=== PATIENT | male | born 1975 | race Caucasian/White ===

== ENCOUNTER 2017-08-12 09:17 | Outpatient (CLI) | payer BC | END 2017-08-12 09:18 | disposition home or self-care (01) | LOC: BICULT 09:17 | PROVIDERS: ATTEND Internal Medicine Gastroenterology | DX: K21.9 Gastro-esophageal reflux disease without esophagitis (principal); R14.0 Abdominal distension (gaseous); R07.9 Chest pain, unspecified; K76.0 Fatty (change of) liver, not elsewhere classified | CPT/HCPCS: 76705 ==

== ENCOUNTER 2019-02-06 07:25 | Outpatient (CLI) | payer BC ==
--- NOTE | 2019-02-06 15:25 | NM ---
NUCLEAR MEDICINE GASTRIC EMPTYING EXAM: Date: 02/06/19 HISTORY: 43-year-old male with esophageal reflux. TECHNIQUE: A nuclear medicine gastric emptying exam was performed after administration of 2.1 mCi technetium-99m sulfur colloid mixed with eggs. FINDINGS: 53% emptying is seen at 32 minutes. 49% emptying is seen at 61 minutes. 63% emptying is seen at 121 minutes. 89% emptying is seen at 188 minutes. 92% emptying is seen at 242 minutes. T-1/2 of gastric emptying is approximately 30 minutes. IMPRESSION: Normal nuclear medicine gastric emptying exam. POS: [facility]
== END 2019-02-06 07:26 | disposition home or self-care (01) ==
LOC: NM 07:25
PROVIDERS: ATTEND Internal Medicine Gastroenterology
DX: K76.0 Fatty (change of) liver, not elsewhere classified (principal); K21.9 Gastro-esophageal reflux disease without esophagitis
CPT/HCPCS: 78264; A9541

== ENCOUNTER 2019-02-26 09:39 | Outpatient (CLI) | payer BC ==
--- NOTE | 2019-02-26 10:12 | RAD ---
EXAM: 3 views of the right foot HISTORY: Foot pain in the lateral foot for one month COMPARISON: None FINDINGS: 3 views of the right foot shows no evidence of acute fracture or dislocation. No soft tissu e swelling is seen. No degenerative changes are present. IMPRESSION: No evidence of acute osseous abnormality.
== END 2019-02-26 09:40 | disposition home or self-care (01) ==
LOC: RAD 09:39 → SCSRAD 09:40
PROVIDERS: ATTEND Family Medicine
DX: M79.671 Pain in right foot (principal)

== ENCOUNTER 2019-04-27 07:47 | Outpatient (CLI) | payer BC ==
--- NOTE | 2019-04-27 13:10 | NM ---
EXAM: NM Hida Scan W Drug PROVIDED CLINICAL HISTORY: Abdominal distention (gaseous) COMPARISON: None FINDINGS: Sequential anterior images of the abdomen are obtained. There is prompt uptake and excretion of radio tracer by the liver. Gallbladder activity is visualized by 4 minutes with increasing activity in the gallbladder imaging up to 60 minutes. Bowel activity is visualized by 6 minutes. After 60 minutes of imaging, 8 ounces of ensure was administered orally. A gallbladder ejection fraction of 49% was obtained. A normal gallbladder ejection fraction is greater than 33%. IMPRESSION: 1. No evidence of a cystic or common duct obstruction. 2. Normal gallbladder ejection fraction.
== END 2019-04-27 07:48 | disposition home or self-care (01) ==
LOC: NM 07:47
PROVIDERS: ATTEND Internal Medicine Gastroenterology
DX: R14.0 Abdominal distension (gaseous) (principal)
CPT/HCPCS: 78227; A9537

== ENCOUNTER 2019-10-19 12:36 | Emergency (ER) | payer BC ==
[2019-10-19 13:14] LABS: #Basophils 0.1 thou/uL (0.0-0.2); #Eosinphils 0.4 thou/uL (0.0-0.7); #Monocytes 1.2 thou/uL (0.11-0.59); #Neutrophils 10.8 thou/uL (1.40-6.50); %Basophils 0.9 % (0.0-1.0); %Eosinophils 2.3 % (0.0-10.0); %Monocytes 7.9 % (0.0-10.0); %Neutrophils 69.9 % (42.0-75.0); Mean Corpuscular HGB CONC 33.1 g/dL (32.0-36.0); Mean Corpuscular Hemoglobin 29.3 pg (27.0-31.0); Mean Corpuscular Volume 88.5 fL (78.0-98.0); Mean Platelet Volume 7.9 fL (7.4-10.4); Platelet Count 446 thou/uL (130-400); RBC Distribution Width 11.7 % (11.5-14.5); White Blood Cell (WBC) Count 15.5 thou/uL (4.8-10.8)
[2019-10-19] MEDS ORDERED: Ketorolac Tromethamine 30 MG/ML VIAL ONE ×2 (13:43→13:53)
[2019-10-19] MEDS ORDERED: Ondansetron PF 4 MG/2 ML Vial ONE ×2 (13:43→13:53)
[2019-10-19 13:44] LABS: ALT (SGPT) 22 U/L (8-55); AST (SGOT) 17 U/L (5-34); Albumin 4.5 g/dL (3.5-5.0); Alkaline Phosphatase 154 U/L (40-110); Anion Gap 11 mmol/L (10-20); BUN (Urea Nitrogen) 11 mg/dL (8.9-20.6); Bilirubin, Total 0.3 mg/dL (0.2-1.2); CK (CPK) 77 U/L (30-200); Calc. Creatinine Clearance 0 mL/min (70-130); Calcium 9.7 mg/dL (7.8-10.44); Carbon Dioxide 26 mmol/L (22-29); Chloride 104 mmol/L (98-107); Estimated GFR-MDRD 54; Globulin 4.2 g/dL (2.4-3.5); Glucose 108 mg/dL (70-105); Lipase 30 U/L (8-78); Potassium 4.2 mmol/L (3.5-5.1); Protein, Total 8.7 g/dL (6.0-8.3); Sodium 137 mmol/L (136-145)
--- NOTE | 2019-10-19 14:55 | CT ---
CT ABDOMEN AND PELVIS WITH IV CONTRAST: Indication: History of right lower quadrant abdominal pain. FINDINGS: There is a small 2 mm stone at the right UVJ with minimal right sided hydroureter and right sided hyd ronephrosis. Liver, pancreas, adrenal glands, and gallbladder appear within normal limits. There is a normal appen michelle in the right lower quadrant. Rectum and perirectal soft tissues are unremarkable appearing. There is mild chronic appearing superior endplate compression abnormality involving T12 and L1. IMPRESSION: 2 mm right UVJ calculus with mild right hydronephrosis. POS: [facility]
[2019-10-19] MEDS ORDERED: Iopamidol-370 76% 500 ML 1 ML ONE (15:42)
[2019-10-19 16:02] LABS: Bacteria/HPF None Seen HPF (None Seen); Bilirubin Negative (Negative); Blood, Urine 2+ (Negative); Clarity Clear (Clear); Glucose, Urine (Dipstick) Normal (Negative); Leukocyte Negative Leu/uL (Negative); Nitrite Negative (Negative); Protein, Urine (Dipstick) Negative (Neg-Trace); RBC/HPF 21-50 HPF (0-3); Squamous Epithelial 0-3 HPF (0-3); Urobilinogen Normal mg/dL (Less than 2)
[2019-10-19 16:14] LABS: Sperm/HPF 1+ HPF (None Seen)
== END 2019-10-19 17:03 | disposition home or self-care (01) ==
LOC: ERS 12:36
DX: N13.2 Hydronephrosis with renal and ureteral calculous obstruction (principal); F41.9 Anxiety disorder, unspecified; I10 Essential (primary) hypertension; J45.909 Unspecified asthma, uncomplicated; Z79.899 Other long term (current) drug therapy
CPT/HCPCS: 36415; 74177; 80053; 81003; 81015; 82550; 83605; 83690; 85025; 94760; 96374; 96375; J1885; J2405; Q9967

== ENCOUNTER 2019-10-23 09:53 | Outpatient (CLI) | payer BC ==
--- NOTE | 2019-10-23 14:06 | RAD ---
KUB: 10/23/19 COMPARISON: None. HISTORY: Renal stone. FINDINGS: Anterior views of the abdomen shows a nonspecific, nonobstructive bowel gas pattern. No obvious calci fications are seen projecting over either renal shadow or along the course of the ureters. The bones are unremarkable. IMPRESSION: 1. Nonobstructive bowel gas pattern. 2. No urinary collecting system calculi identified. POS: [facility]
== END 2019-10-23 09:54 | disposition home or self-care (01) ==
LOC: BICRAD 09:53
PROVIDERS: ATTEND Family Medicine
DX: N20.0 Calculus of kidney (principal)
CPT/HCPCS: 74018

== ENCOUNTER 2021-06-23 09:22 | Outpatient (CLI) | payer BC | END 2021-06-23 09:23 | disposition home or self-care (01) | LOC: BICRAD 09:22 | PROVIDERS: ATTEND Family Medicine | DX: M25.531 Pain in right wrist (principal); M79.641 Pain in right hand ==

== ENCOUNTER 2022-06-20 08:33 | Outpatient (CLI) | payer BC | END 2022-06-20 08:34 | disposition home or self-care (01) | LOC: BICCT 08:33 | PROVIDERS: ATTEND Family Medicine | DX: N23 Unspecified renal colic (principal); N20.2 Calculus of kidney with calculus of ureter | CPT/HCPCS: 74176 ==

== ENCOUNTER 2022-08-15 12:24 | Outpatient (CLI) | payer BC | END 2022-08-15 12:25 | disposition home or self-care (01) | LOC: TBSIIMAG 12:24 | PROVIDERS: ATTEND Family Medicine | DX: M54.16 Radiculopathy, lumbar region (principal); M51.26 Other intervertebral disc displacement, lumbar region; M51.27 Other intervertebral disc displacement, lumbosacral region | CPT/HCPCS: 72148 ==

== ENCOUNTER 2024-03-13 09:36 | Outpatient (CLI) | payer OTHER | END 2024-03-13 09:37 | disposition home or self-care (01) | LOC: DTY/OP 09:36 | PROVIDERS: ATTEND Family Medicine | DX: E66.01 Morbid (severe) obesity due to excess calories (principal) | CPT/HCPCS: 97802 ==